=== PATIENT | female | born 1970 | race Caucasian/White ===

== ENCOUNTER 2018-01-29 08:34 | Day surgery (SDC) | payer MEDICAID ==
[~2018-01-29] VITALS: Ht 157.5 cm; Wt 63.5 kg
[~2018-01-29 08:34] MED LIST: LACTATED RINGERS 1,000 ML IV SCH
[2018-01-29] MEDS ORDERED: CIPROFLOXACIN 0.3% OPHTH SOLN 2.5ML LEFTEYE ONE (08:35)
[2018-01-29] MEDS ORDERED: TOBRAMYCIN SULFATE 80MG/2ML 30ML ONE (09:03)
[2018-01-29] MEDS ORDERED: METHYLPREDNISOLONE SOD SUCC 40 MG/ML VIAL ONE (09:03)
[2018-01-29] MEDS ORDERED: PROPOFOL 200MG/20ML VIAL IV ONE (09:45)
[2018-01-29] MEDS ORDERED: LIDOCAINE HCL/PF 1% 10 MG/ML 5ML VIAL ONE (09:45)
[2018-01-29] MEDS ORDERED: MIDAZOLAM HCL 2 MG/2 ML VIAL ONE (09:45)
[2018-01-29] MEDS ORDERED: SODIUM CHLORIDE 0.9% 1,000 ML IV ONE (10:04)
[2018-01-29] MEDS ORDERED: ONDANSETRON HCL 4MG/2ML VIAL IV PRN (10:15)
[2018-01-29] MEDS ORDERED: HYDROMORPHONE HCL/PF 2MG/ML CPJ IV PRN (10:15)
[2018-01-29] MEDS ORDERED: ACETAMINOPHEN WITH CODEINE 300/30MG TABLET PO PRN (11:15)
[2018-01-29 11:31] VITALS: BP 139/86
[2018-01-29] MEDS ORDERED: NEO/POLYMYX B SULF/DEXAMETH OPHTH OINT 3.5GM ONE (11:46)
[2018-01-29] MEDS ORDERED: LIDOCAINE HCL 2%/EPINEPHRINE 1:100,000 20 ML VIAL INFIL ONE (11:46)
[2018-01-29] MEDS ORDERED: BALANCED SALT IRRIG SOLN 15ML ONE (11:46)
[2018-01-29] MEDS ORDERED: BUPIVACAINE HCL/PF 0.75% (7.5MG/ML) 10ML ONE (11:46)
[2018-01-29] MEDS ORDERED: CIPROFLOXACIN 0.3% OPHTH SOLN 2.5ML ONE (11:46)
== END 2018-01-29 11:15 | disposition home or self-care (01) ==
LOC: OR 08:34
PROVIDERS: ATTEND Ophthalmology
DX: H11.002 Unspecified pterygium of left eye (principal); F41.9 Anxiety disorder, unspecified; M19.90 Unspecified osteoarthritis, unspecified site; K21.9 Gastro-esophageal reflux disease without esophagitis
CPT/HCPCS: 65426; 88304; J2250; J2920; J3260; J3490; J7120; J2704